=== PATIENT | male | born 1965 | race Caucasian/White ===

== ENCOUNTER 2017-05-24 20:44 | Emergency (ER) | payer BC ==
[2017-05-25] MEDS: SOD CHLORIDE 0.9% 1,000 ML IV (02:41)
[2017-05-25 02:46] LABS: WHITE BLOOD COUNT 5.7 10^3/ul (4.8-10.8)
[2017-05-25 02:46] LABS: ADD MAN DIFF? NO; BASOPHILS % 0.7 % (0.0-2.0); EOSINOPHILS # 0.3 10^3/ul (0.0-0.5); EOSINOPHILS % 5.6 % (0.0-7.0); HEMOGLOBIN 9.4 g/dl (14.0-18.0); LYMPHOCYTES # 1.2 10^3/ul (0.8-2.9); LYMPHOCYTES % 21.7 % (15.0-51.0); MEAN CORPUSCULAR HEMOGLOBIN 27.1 pg (29.0-33.0); MEAN CORPUSCULAR HGB CONC 33.6 g/dl (32.0-37.0); MEAN CORPUSCULAR VOLUME 80.7 fl (82.0-101.0); MEAN PLATELET VOLUME 10.1 fl (7.4-10.4); MONOCYTE # 0.6 10^3/ul (0.3-0.9); MONOCYTES % 10.8 % (0.0-11.0); NEUTROPHIL # 3.5 10^3/ul (1.6-7.5); NEUTROPHILS % 60.8 % (39.0-77.0); PLATELET COUNT 251 10^3/UL (140-415); RED BLOOD COUNT 3.47 10^6/ul (4.70-6.10); RED CELL DISTRIBUTION WIDTH 12.7 % (11.5-14.5)
[2017-05-25] MEDS: ONDANSETRON 4 MG INJ IV (03:12)
[2017-05-25 03:23] LABS: ALANINE AMINOTRANSFERASE 32 IU/L (13-69); ALBUMIN 3.9 g/dl (3.3-4.9); ALBUMIN/GLOBULIN RATIO 1.34; ALKALINE PHOSPHATASE 63 IU/L (42-121); ANION GAP 18 (8-16); ASPARTATE AMINO TRANSFERASE 17 IU/L (15-46); BILIRUBIN,INDIRECT 0.2 mg/dl (0-1.1); BILIRUBIN,TOTAL 0.2 mg/dl (0.2-1.3); BLOOD UREA NITROGEN 24 mg/dl (7-20); CALCIUM 8.7 mg/dl (8.4-10.2); CARBON DIOXIDE 28 mmol/L (21-31); CHLORIDE 103 mmol/L (97-110); CREATININE 1.21 mg/dl (0.61-1.24); GLUCOSE 167 mg/dl (70-220); POTASSIUM 3.9 mmol/L (3.5-5.1); SODIUM 145 mmol/L (135-144); TOTAL PROTEIN 6.8 g/dl (6.1-8.1)
[2017-05-25] MEDS: ALTEPLASE (CATHFLO) 2 MG INJ CATHETER ×2 (04:07→04:53)
[2017-05-25 06:23] LABS: VANCOMYCIN,RANDOM 19.3 ug/ml
== END 2017-05-25 06:05 | disposition home or self-care (01) ==
LOC: E/R 20:44
DX: T82.898A Other specified complication of vascular prosthetic devices, implants and grafts, initial encounter (principal); E11.9 Type 2 diabetes mellitus without complications; Y71.2 Prosthetic and other implants, materials and accessory cardiovascular devices associated with adverse incidents; Z79.4 Long term (current) use of insulin
CPT/HCPCS: 36415; 80053; 80202; 85025; 96374; 99284-25

== ENCOUNTER 2017-06-25 00:18 | Inpatient (IN) | payer BC ==
[2017-06-25] MEDS: SOD CHLORIDE 0.9% 1,000 ML IV ×3 (04:43→21:34)
[2017-06-25 06:21] LABS: ADD MAN DIFF? NO
[2017-06-25] MEDS: PIPER-TAZO 3.375 GM IV (PMX) 100 ML IVPB ×3 (06:21→19:21)
[2017-06-25 06:29] LABS: BASOPHIL # 0.1 10^3/ul (0.0-0.1); BASOPHILS % 0.5 % (0.0-2.0); EOSINOPHILS # 0.5 10^3/ul (0.0-0.5); EOSINOPHILS % 4.6 % (0.0-7.0); LYMPHOCYTES # 1.3 10^3/ul (0.8-2.9); MEAN CORPUSCULAR HEMOGLOBIN 27.2 pg (29.0-33.0); MEAN CORPUSCULAR HGB CONC 34.4 g/dl (32.0-37.0); MONOCYTE # 0.7 10^3/ul (0.3-0.9); MONOCYTES % 7.4 % (0.0-11.0); NEUTROPHIL # 7.2 10^3/ul (1.6-7.5); NEUTROPHILS % 74.1 % (39.0-77.0); PLATELET COUNT 255 10^3/UL (140-415); RED BLOOD COUNT 4.05 10^6/ul (4.70-6.10); RED CELL DISTRIBUTION WIDTH 11.7 % (11.5-14.5)
[2017-06-25 06:29] LABS: WHITE BLOOD COUNT 9.7 10^3/ul (4.8-10.8)
[2017-06-25 06:55] LABS: ALANINE AMINOTRANSFERASE 39 IU/L (13-69); ALBUMIN 4.3 g/dl (3.3-4.9); ALBUMIN/GLOBULIN RATIO 1.22; ALKALINE PHOSPHATASE 107 IU/L (42-121); ANION GAP 15 (8-16); ASPARTATE AMINO TRANSFERASE 19 IU/L (15-46); BILIRUBIN,INDIRECT 0.2 mg/dl (0-1.1); BILIRUBIN,TOTAL 0.2 mg/dl (0.2-1.3); BLOOD UREA NITROGEN 30 mg/dl (7-20); CALCIUM 9.8 mg/dl (8.4-10.2); CARBON DIOXIDE 30 mmol/L (21-31); CHLORIDE 93 mmol/L (97-110); CREATININE 1.08 mg/dl (0.61-1.24); POTASSIUM 4.8 mmol/L (3.5-5.1); SODIUM 133 mmol/L (135-144); TOTAL PROTEIN 7.8 g/dl (6.1-8.1)
[2017-06-25 06:56] LABS: LACTIC ACID 1.2 mmol/L (0.5-2.0)
[2017-06-25 06:58] LABS: GLUCOSE 474 mg/dl (70-220)
[2017-06-25 07:07] LABS: TROPONIN-I < 0.012 ng/ml (0.00-0.12)
[2017-06-25] MEDS ORDERED: SOD CHLORIDE 0.9% 1,000 ML IV (07:09)
[2017-06-25] MEDS ORDERED: VANCOMYCIN IV PER PHARMACY XX (07:30)
[2017-06-25] MEDS ORDERED: GLUCOSE GEL 15 GRAM TUBE BUCCAL (07:30)
[2017-06-25] MEDS ORDERED: morphine 2 MG INJ IV (07:30)
[2017-06-25] MEDS ORDERED: DEXTROSE 50% 50 ML SYRINGE IV ×2 (07:30)
[2017-06-25] MEDS ORDERED: GLUCAGON 1 MG INJ IM (07:30)
[2017-06-25] MEDS ORDERED: GLUCOSE GEL 15 GRAM TUBE PO ×2 (07:30)
[2017-06-25] MEDS ORDERED: ZOLPIDEM 5 MG TAB PO (07:30)
[2017-06-25] MEDS ORDERED: DOCUSATE SODIUM 100 MG CAP PO (07:30)
[2017-06-25] MEDS ORDERED: MAGNESIUM HYDROXIDE 30ML CUP PO (07:30)
[2017-06-25] MEDS ORDERED: NACL 0.9% 3 ML SYG IV (07:30)
[2017-06-25] MEDS ORDERED: ACETAMINOPHEN 325 MG TAB PO (07:30)
[2017-06-25] MEDS ORDERED: HYDROCODONE/APAP (5/325) TAB PO (07:30)
[2017-06-25] MEDS ORDERED: ONDANSETRON 4 MG INJ IV (07:30)
[2017-06-25] MEDS: VANCOMYCIN 1 GM (PMX) 250 ML IVPB (07:37)
[2017-06-25] MEDS: INSULIN GLARGINE [LANtus] 3 ML PEN SC ×2 (07:57→21:39)
[2017-06-25] MEDS ORDERED: morphine LIQ (10 MG/5 ML) CUP PO (08:00)
[2017-06-25] MEDS: PANTOPRAZOLE (EC) 40 MG TAB PO (08:00)
[2017-06-25 08:58] LABS: LACTIC ACID 0.9 mmol/L (0.5-2.0)
[2017-06-25] MEDS ORDERED: INSULIN GLARGINE [LANtus] 3 ML PEN SC (09:00)
[2017-06-25 09:01] LABS: C-REACTIVE PROTEIN 5.5 mg/dl (0.0-0.9)
[2017-06-25] MEDS: INSULIN ASPART [NOVOLOG] 3 ML PEN SC ×5 (09:16→21:00)
[2017-06-25] MEDS: FAMOTIDINE 20 MG TAB PO ×2 (09:47→21:35)
[2017-06-25] MEDS: LACTOBACILLUS RHAMNOSUS CAP PO ×2 (09:48→21:34)
[2017-06-25] MEDS: LOSARTAN 25 MG TAB PO ×2 (09:48→21:35)
[2017-06-25] MEDS: CITALOPRAM 20 MG TAB PO (09:48)
[2017-06-25 09:54] LABS: ERYTHROCYTE SEDIMENTATION RATE 64 mm/Hr (0-20)
[2017-06-25 10:57] LABS: LACTIC ACID 2.2 mmol/L (0.5-2.0)
[2017-06-25] MEDS: PREGABALIN 75 MG CAP PO ×2 (13:53→21:35)
[2017-06-25] MEDS: COLLAGENASE 30 GM TUBE TOP (13:54)
[2017-06-25] MEDS ORDERED: LACTATED RINGER'S 1,000 ML IV (17:30)
[2017-06-25] MEDS: LACTATED RINGER'S 1,000 ML IV (17:56)
[2017-06-25 18:25] LABS: ANION GAP 13 (8-16); BLOOD UREA NITROGEN 25 mg/dl (7-20); CALCIUM 9.1 mg/dl (8.4-10.2); CARBON DIOXIDE 28 mmol/L (21-31); CHLORIDE 100 mmol/L (97-110); CREATININE 1.01 mg/dl (0.61-1.24); GLUCOSE 255 mg/dl (70-220); MAGNESIUM 1.8 mg/dl (1.7-2.5); PHOSPHORUS 3.9 mg/dl (2.5-4.9); POTASSIUM 4.4 mmol/L (3.5-5.1); SODIUM 137 mmol/L (135-144)
[2017-06-25 18:26] LABS: LACTIC ACID 0.9 mmol/L (0.5-2.0)
[2017-06-25] MEDS: ATORVASTATIN 20 MG TAB PO (21:35)
[2017-06-25] MEDS: VANCOMYCIN 1.25 GM in SOD CHLORIDE 0.45% 250 ML IVPB ×2 (21:58→21:59)
[2017-06-26] MEDS: PIPER-TAZO 3.375 GM IV (PMX) 100 ML IVPB ×4 (00:56→18:27)
[2017-06-26] MEDS: ACCU-CHEK XX (01:28)
[2017-06-26 05:07] LABS: ADD MAN DIFF? NO
[2017-06-26 05:14] LABS: WHITE BLOOD COUNT 6.9 10^3/ul (4.8-10.8)
[2017-06-26 05:14] LABS: BASOPHILS % 0.6 % (0.0-2.0); EOSINOPHILS # 0.6 10^3/ul (0.0-0.5); EOSINOPHILS % 8.3 % (0.0-7.0); HEMATOCRIT 28.5 % (42.0-52.0); HEMOGLOBIN 9.6 g/dl (14.0-18.0); LYMPHOCYTES # 1.3 10^3/ul (0.8-2.9); LYMPHOCYTES % 19.4 % (15.0-51.0); MEAN CORPUSCULAR HEMOGLOBIN 26.7 pg (29.0-33.0); MEAN CORPUSCULAR HGB CONC 33.7 g/dl (32.0-37.0); MEAN CORPUSCULAR VOLUME 79.2 fl (82.0-101.0); MEAN PLATELET VOLUME 10.1 fl (7.4-10.4); MONOCYTE # 0.6 10^3/ul (0.3-0.9); MONOCYTES % 8.3 % (0.0-11.0); NEUTROPHIL # 4.3 10^3/ul (1.6-7.5); NEUTROPHILS % 63.1 % (39.0-77.0); PLATELET COUNT 243 10^3/UL (140-415); RED CELL DISTRIBUTION WIDTH 11.8 % (11.5-14.5)
[2017-06-26 05:39] LABS: ALANINE AMINOTRANSFERASE 40 IU/L (13-69); ALBUMIN 3.4 g/dl (3.3-4.9); ALBUMIN/GLOBULIN RATIO 1.21; ALKALINE PHOSPHATASE 61 IU/L (42-121); ANION GAP 11 (8-16); ASPARTATE AMINO TRANSFERASE 16 IU/L (15-46); BILIRUBIN,INDIRECT 0.1 mg/dl (0-1.1); BILIRUBIN,TOTAL 0.1 mg/dl (0.2-1.3); BLOOD UREA NITROGEN 24 mg/dl (7-20); CALCIUM 8.9 mg/dl (8.4-10.2); CARBON DIOXIDE 29 mmol/L (21-31); CHLORIDE 101 mmol/L (97-110); CHOL/HDL RATIO 3.1 RATIO; CHOLESTEROL 113 mg/dl (100-200); CREATININE 1.16 mg/dl (0.61-1.24); GLUCOSE 150 mg/dl (70-220); HDL CHOLESTEROL 36 mg/dl (28-71); LDL CHOLESTEROL,CALCULATED 66 mg/dl; MAGNESIUM 1.8 mg/dl (1.7-2.5); POTASSIUM 4.3 mmol/L (3.5-5.1); SODIUM 137 mmol/L (135-144); TOTAL PROTEIN 6.2 g/dl (6.1-8.1); TRIGLYCERIDES 55 mg/dl (0-149)
[2017-06-26 05:53] LABS: AMPHETAMINE/METHAMPHETAMINE Negative (NEGATIVE); BARBITURATES Negative (NEGATIVE); BENZODIAZEPINES Negative (NEGATIVE); CANNABINOIDS Negative (NEGATIVE); COCAINE Negative (NEGATIVE); OPIATES Negative (NEGATIVE)
[2017-06-26] MEDS: PANTOPRAZOLE (EC) 40 MG TAB PO (05:57)
[2017-06-26] MEDS: SOD CHLORIDE 0.9% 1,000 ML IV ×2 (06:40→11:34)
[2017-06-26 06:58] LABS: THYROID STIMULATING HORMONE 0.243 MIU/L (0.465-4.680)
[2017-06-26] MEDS: INSULIN ASPART [NOVOLOG] 3 ML PEN SC ×7 (09:03→21:00)
[2017-06-26] MEDS: FAMOTIDINE 20 MG TAB PO ×2 (09:04→20:53)
[2017-06-26] MEDS: LACTOBACILLUS RHAMNOSUS CAP PO ×2 (09:04→20:54)
[2017-06-26] MEDS: CITALOPRAM 20 MG TAB PO (09:04)
[2017-06-26] MEDS: LOSARTAN 25 MG TAB PO ×2 (09:05→20:55)
[2017-06-26] MEDS: INSULIN GLARGINE [LANtus] 3 ML PEN SC ×2 (09:09→21:49)
[2017-06-26] MEDS: COLLAGENASE 30 GM TUBE TOP (09:10)
[2017-06-26] MEDS: PREGABALIN 75 MG CAP PO ×2 (09:17→20:54)
[2017-06-26] MEDS: VANCOMYCIN 1.25 GM in SOD CHLORIDE 0.45% 250 ML IVPB ×2 (11:34→21:43)
[2017-06-26 11:37] LABS: HEMOGLOBIN A1C 11.9 % (0-5.9)
[2017-06-26 13:53] LABS: ADD UMIC NO; UR ASCORBIC ACID NEGATIVE (NEGATIVE); UR BILIRUBIN (Dip) NEGATIVE (NEGATIVE); UR BLOOD (Dip) NEGATIVE (NEGATIVE); UR CLARITY SLIGHTLY CLOUDY (CLEAR); UR COLOR YELLOW (YELLOW); UR GLUCOSE (Dip) 3+ mg/dL (NEGATIVE); UR KETONES (Dip) NEGATIVE (NEGATIVE); UR LEUKOCYTE ESTERASE (Dip) NEGATIVE Leu/ul (NEGATIVE); UR NITRITE (Dip) NEGATIVE (NEGATIVE); UR RBC 3 /HPF (0-5); UR SPECIFIC GRAVITY (Dip) 1.022 (1.003-1.030); UR TOTAL PROTEIN (Dip) NEGATIVE (NEGATIVE); UR UROBILINOGEN (Dip) NEGATIVE (NEGATIVE); UR WBC 1 /HPF (0-5)
[2017-06-26] MEDS: ATORVASTATIN 20 MG TAB PO (20:53)
[2017-06-27] MEDS: PIPER-TAZO 3.375 GM IV (PMX) 100 ML IVPB ×3 (00:55→13:14)
[2017-06-27] MEDS: SOD CHLORIDE 0.9% 1,000 ML IV ×3 (01:39→20:47)
[2017-06-27] MEDS: ACCU-CHEK XX (01:47)
[2017-06-27 05:13] LABS: ADD MAN DIFF? NO
[2017-06-27 05:14] LABS: BASOPHILS % 0.7 % (0.0-2.0); EOSINOPHILS # 0.5 10^3/ul (0.0-0.5); EOSINOPHILS % 9.5 % (0.0-7.0); HEMATOCRIT 29.3 % (42.0-52.0); HEMOGLOBIN 9.9 g/dl (14.0-18.0); LYMPHOCYTES # 1.4 10^3/ul (0.8-2.9); LYMPHOCYTES % 25.2 % (15.0-51.0); MEAN CORPUSCULAR HEMOGLOBIN 26.9 pg (29.0-33.0); MEAN CORPUSCULAR HGB CONC 33.8 g/dl (32.0-37.0); MEAN CORPUSCULAR VOLUME 79.6 fl (82.0-101.0); MEAN PLATELET VOLUME 10.1 fl (7.4-10.4); MONOCYTE # 0.5 10^3/ul (0.3-0.9); MONOCYTES % 9.3 % (0.0-11.0); NEUTROPHILS % 54.9 % (39.0-77.0); PLATELET COUNT 257 10^3/UL (140-415); RED BLOOD COUNT 3.68 10^6/ul (4.70-6.10); RED CELL DISTRIBUTION WIDTH 11.8 % (11.5-14.5)
[2017-06-27 05:14] LABS: WHITE BLOOD COUNT 5.4 10^3/ul (4.8-10.8)
[2017-06-27 05:39] LABS: MAGNESIUM 1.7 mg/dl (1.7-2.5)
[2017-06-27 05:39] LABS: PHOSPHORUS 4.2 mg/dl (2.5-4.9)
[2017-06-27 05:41] LABS: ANION GAP 12 (8-16); BLOOD UREA NITROGEN 22 mg/dl (7-20); CARBON DIOXIDE 29 mmol/L (21-31); CHLORIDE 102 mmol/L (97-110); CREATININE 1.06 mg/dl (0.61-1.24); GLUCOSE 151 mg/dl (70-220); POTASSIUM 4.4 mmol/L (3.5-5.1); SODIUM 139 mmol/L (135-144)
[2017-06-27] MEDS: PANTOPRAZOLE (EC) 40 MG TAB PO (06:17)
[2017-06-27] MEDS: INSULIN ASPART [NOVOLOG] 3 ML PEN SC ×7 (08:44→21:00)
[2017-06-27] MEDS: INSULIN GLARGINE [LANtus] 3 ML PEN SC ×2 (08:46→21:34)
[2017-06-27] MEDS: CITALOPRAM 20 MG TAB PO (08:47)
[2017-06-27] MEDS: LOSARTAN 25 MG TAB PO ×2 (08:48→21:30)
[2017-06-27] MEDS: FAMOTIDINE 20 MG TAB PO ×2 (08:48→21:31)
[2017-06-27] MEDS: LACTOBACILLUS RHAMNOSUS CAP PO ×2 (08:48→21:30)
[2017-06-27] MEDS: PREGABALIN 75 MG CAP PO ×2 (09:40→21:30)
[2017-06-27 09:59] LABS: VANCOMYCIN,TROUGH 18.5 ug/ml (10.0-20.0)
[2017-06-27] MEDS: COLLAGENASE 30 GM TUBE TOP (10:30)
[2017-06-27] MEDS: VANCOMYCIN 1 GM 250 ML IVPB ×2 (10:53→23:03)
[2017-06-27] MEDS: CEFTRIAXONE 1 GM/50 ML (PMX) 50 ML IVPB (15:00)
[2017-06-27 15:42] LABS: CHLORIDE, RANDOM URINE 79 mmol/L (32-290)
[2017-06-27] MEDS ORDERED: MIDAZOLAM 1 MG/ML 2 ML INJ (20:10)
[2017-06-27] MEDS ORDERED: ONDANSETRON 4 MG INJ (20:11)
[2017-06-27] MEDS: BUPIVACAINE 0.5% (SDV) 30 ML INJ (20:12)
[2017-06-27] MEDS: POLYMYXIN/BACITRACIN 1L IRRIG (20:12)
[2017-06-27] MEDS: LIDOCAINE 2% (MDV) 20 ML INJ (20:12)
[2017-06-27] MEDS ORDERED: FENTAnyl 50 MCG/ML VIAL IV ×3 (20:30)
[2017-06-27] MEDS ORDERED: HYDROmorphONE (0.2 MG/ML) 10ML SYG IV ×3 (20:30)
[2017-06-27] MEDS ORDERED: IPRATROPIUM (NEB) 0.5 MG/2.5 ML AMP HHN (20:30)
[2017-06-27] MEDS ORDERED: OXYCODONE/ACETAMINOPHEN (5/325) TAB PO ×2 (20:30)
[2017-06-27] MEDS ORDERED: hydrALAzine 20 MG INJ IV (20:30)
[2017-06-27] MEDS ORDERED: ONDANSETRON 4 MG INJ IV (20:30)
[2017-06-27] MEDS ORDERED: EPHEDrine SULFATE 50 MG/5 ML SYG IV (20:30)
[2017-06-27] MEDS ORDERED: TRIMETHOBENZAMIDE 100 MG/ML VIAL IM (20:30)
[2017-06-27] MEDS ORDERED: ALBUTEROL 0.083% (NEB) 2.5 MG/3 ML AMP HHN (20:30)
[2017-06-27] MEDS ORDERED: LABETALOL HCL 20MG INJ IV (20:30)
[2017-06-27] MEDS ORDERED: MIDAZOLAM 1 MG/ML 2 ML INJ IV (20:30)
[2017-06-27] MEDS ORDERED: DIPHENHYDRAMINE 50 MG INJ IV (20:30)
[2017-06-27] MEDS ORDERED: MEPERIDINE 25 MG INJ IV (20:30)
[2017-06-27] MEDS: ATORVASTATIN 20 MG TAB PO (21:31)
[2017-06-28] MEDS: ACCU-CHEK XX (01:02)
[2017-06-28] MEDS: SOD CHLORIDE 0.9% 1,000 ML IV ×3 (03:19→11:45)
[2017-06-28] MEDS: PANTOPRAZOLE (EC) 40 MG TAB PO (05:39)
[2017-06-28 05:46] LABS: ADD MAN DIFF? NO
[2017-06-28 05:56] LABS: BASOPHILS % 0.8 % (0.0-2.0); EOSINOPHILS # 0.4 10^3/ul (0.0-0.5); HEMATOCRIT 30.5 % (42.0-52.0); HEMOGLOBIN 10.2 g/dl (14.0-18.0); LYMPHOCYTES # 0.9 10^3/ul (0.8-2.9); LYMPHOCYTES % 16.3 % (15.0-51.0); MEAN CORPUSCULAR HEMOGLOBIN 26.6 pg (29.0-33.0); MEAN CORPUSCULAR HGB CONC 33.4 g/dl (32.0-37.0); MEAN CORPUSCULAR VOLUME 79.6 fl (82.0-101.0); MEAN PLATELET VOLUME 9.9 fl (7.4-10.4); MONOCYTE # 0.5 10^3/ul (0.3-0.9); MONOCYTES % 9.5 % (0.0-11.0); NEUTROPHIL # 3.4 10^3/ul (1.6-7.5); PLATELET COUNT 286 10^3/UL (140-415); RED BLOOD COUNT 3.83 10^6/ul (4.70-6.10); RED CELL DISTRIBUTION WIDTH 11.9 % (11.5-14.5)
[2017-06-28 05:56] LABS: WHITE BLOOD COUNT 5.3 10^3/ul (4.8-10.8)
[2017-06-28 06:22] LABS: PHOSPHORUS 3.9 mg/dl (2.5-4.9)
[2017-06-28 06:22] LABS: MAGNESIUM 1.6 mg/dl (1.7-2.5)
[2017-06-28 06:33] LABS: ANION GAP 9 (8-16); BLOOD UREA NITROGEN 18 mg/dl (7-20); CARBON DIOXIDE 30 mmol/L (21-31); CHLORIDE 105 mmol/L (97-110); CREATININE 1.04 mg/dl (0.61-1.24); GLUCOSE 135 mg/dl (70-220); POTASSIUM 4.3 mmol/L (3.5-5.1); SODIUM 140 mmol/L (135-144)
[2017-06-28] MEDS: PREGABALIN 75 MG CAP PO ×2 (08:35→20:46)
[2017-06-28] MEDS: LACTOBACILLUS RHAMNOSUS CAP PO ×2 (08:35→20:47)
[2017-06-28] MEDS: FAMOTIDINE 20 MG TAB PO (08:35)
[2017-06-28] MEDS: CITALOPRAM 20 MG TAB PO (08:36)
[2017-06-28] MEDS: LOSARTAN 25 MG TAB PO ×2 (08:38→19:43)
[2017-06-28] MEDS: INSULIN ASPART [NOVOLOG] 3 ML PEN SC ×7 (08:43→20:47)
[2017-06-28] MEDS: INSULIN GLARGINE [LANtus] 3 ML PEN SC ×2 (08:44→20:47)
[2017-06-28] MEDS: COLLAGENASE 30 GM TUBE TOP (09:00)
[2017-06-28] MEDS: VANCOMYCIN 1 GM 250 ML IVPB (11:45)
[2017-06-28] MEDS: CEFTRIAXONE 1 GM/50 ML (PMX) 50 ML IVPB (14:22)
[2017-06-28 15:12] LABS: PROCALCITONIN 0.13 ng/mL (<0.10)
[2017-06-28] MEDS: LIDOCAINE 1% (MPF) 5 ML VIAL SC (15:30)
[2017-06-28] MEDS: MAGNESIUM SULFATE 2 GM/50 ML 50 ML IVPB (16:09)
[2017-06-28] MEDS: LEVOFLOXACIN 500 MG TAB PO (16:52)
[2017-06-28] MEDS: INFLUENZA VIRUS VACCINE 0.5 ML (DISPENSING) IM* (16:58)
[2017-06-28] MEDS: ATORVASTATIN 20 MG TAB PO (20:46)
[2017-06-29] MEDS: ACCU-CHEK XX (02:00)
[2017-06-29 05:40] LABS: ADD MAN DIFF? NO
[2017-06-29 05:42] LABS: BASOPHILS % 0.5 % (0.0-2.0); EOSINOPHILS # 0.2 10^3/ul (0.0-0.5); HEMATOCRIT 28.8 % (42.0-52.0); HEMOGLOBIN 9.6 g/dl (14.0-18.0); LYMPHOCYTES # 0.7 10^3/ul (0.8-2.9); MEAN CORPUSCULAR HEMOGLOBIN 26.6 pg (29.0-33.0); MEAN CORPUSCULAR HGB CONC 33.3 g/dl (32.0-37.0); MEAN CORPUSCULAR VOLUME 79.8 fl (82.0-101.0); MEAN PLATELET VOLUME 9.8 fl (7.4-10.4); MONOCYTE # 0.5 10^3/ul (0.3-0.9); NEUTROPHIL # 4.5 10^3/ul (1.6-7.5); NEUTROPHILS % 75.3 % (39.0-77.0); PLATELET COUNT 276 10^3/UL (140-415); RED BLOOD COUNT 3.61 10^6/ul (4.70-6.10); RED CELL DISTRIBUTION WIDTH 11.9 % (11.5-14.5)
[2017-06-29 06:06] LABS: ANION GAP 9 (8-16); BLOOD UREA NITROGEN 19 mg/dl (7-20); CALCIUM 8.6 mg/dl (8.4-10.2); CARBON DIOXIDE 32 mmol/L (21-31); CHLORIDE 102 mmol/L (97-110); CREATININE 0.92 mg/dl (0.61-1.24); GLUCOSE 282 mg/dl (70-220); POTASSIUM 4.5 mmol/L (3.5-5.1); SODIUM 138 mmol/L (135-144)
[2017-06-29 06:07] LABS: PHOSPHORUS 3.4 mg/dl (2.5-4.9)
[2017-06-29 06:07] LABS: MAGNESIUM 1.8 mg/dl (1.7-2.5)
[2017-06-29] MEDS: LEVOFLOXACIN 500 MG TAB PO (06:34)
[2017-06-29] MEDS: PANTOPRAZOLE (EC) 40 MG TAB PO (06:34)
[2017-06-29] MEDS: LOSARTAN 25 MG TAB PO ×2 (07:54→12:34)
[2017-06-29] MEDS: INSULIN GLARGINE [LANtus] 3 ML PEN SC ×2 (08:02→20:39)
[2017-06-29] MEDS: INSULIN ASPART [NOVOLOG] 3 ML PEN SC ×7 (08:03→20:39)
[2017-06-29] MEDS: COLLAGENASE 30 GM TUBE TOP (09:00)
[2017-06-29] MEDS: PREGABALIN 75 MG CAP PO ×2 (09:10→20:32)
[2017-06-29] MEDS: CITALOPRAM 20 MG TAB PO (09:10)
[2017-06-29] MEDS: LACTOBACILLUS RHAMNOSUS CAP PO ×2 (09:10→20:32)
[2017-06-29] MEDS: METOPROLOL 25 MG TAB PO ×2 (12:34→20:34)
[2017-06-29] MEDS: CEFTRIAXONE 1 GM/50 ML (PMX) 50 ML IVPB (14:14)
[2017-06-29] MEDS: ATORVASTATIN 20 MG TAB PO (20:32)
[2017-06-30] MEDS ORDERED: LOSARTAN 50 MG TAB PO (09:00)
== END 2017-06-29 21:21 | disposition home or self-care (01) | DRG 982 ==
LOC: MS1 06-26 15:15 → E/R 00:18 → MS1 06:10
PROVIDERS: Hospitalist
PROC: 0Q9P0ZZ Drainage of Left Metatarsal, Open Approach (ICD-10-PCS; principal; 2017-06-27 19:00)
PROC: 02HV33Z Insertion of Infusion Device into Superior Vena Cava, Percutaneous Approach (ICD-10-PCS; 2017-06-27 20:03)
PROC: B54NZZA Ultrasonography of Left Upper Extremity Veins, Guidance (ICD-10-PCS; 2017-06-27 20:03)
PROC: 3E0234Z Introduction of Serum, Toxoid and Vaccine into Muscle, Percutaneous Approach (ICD-10-PCS; 2017-06-27 20:03)
DX: E10.69 Type 1 diabetes mellitus with other specified complication (principal); M86.172 Other acute osteomyelitis, left ankle and foot; E10.621 Type 1 diabetes mellitus with foot ulcer; E10.42 Type 1 diabetes mellitus with diabetic polyneuropathy; E10.51 Type 1 diabetes mellitus with diabetic peripheral angiopathy without gangrene; L03.116 Cellulitis of left lower limb; L02.612 Cutaneous abscess of left foot; L97.524 Non-pressure chronic ulcer of other part of left foot with necrosis of bone; I10 Essential (primary) hypertension; E78.00 Pure hypercholesterolemia, unspecified; B95.1 Streptococcus, group B, as the cause of diseases classified elsewhere; B95.7 Other staphylococcus as the cause of diseases classified elsewhere; Z83.3 Family history of diabetes mellitus; Z79.4 Long term (current) use of insulin; Z23 Encounter for immunization; E10.65 Type 1 diabetes mellitus with hyperglycemia
CPT/HCPCS: 36415; 36569; 71045; 73718; 76937; 80048; 80053; 80061; 80202; 80307; 81001; 81003; 82436; 82962; 83036; 83605; 83735; 84100; 84145; 84443; 84484; 85025; 85651; 86140; 87040; 87070; 87075; 87086; 87102; 87116; 90686; 93005; 96361; 96365; 96366; 96372; 96375; 99285-25

== ENCOUNTER 2017-07-20 12:33 | Emergency (ER) | payer BC ==
[2017-07-20 16:10] LABS: ADD MAN DIFF? NO
[2017-07-20 16:12] LABS: BASOPHIL # 0.1 10^3/ul (0.0-0.1); BASOPHILS % 0.8 % (0.0-2.0); EOSINOPHILS # 0.3 10^3/ul (0.0-0.5); EOSINOPHILS % 4.7 % (0.0-7.0); HEMATOCRIT 38.6 % (42.0-52.0); HEMOGLOBIN 13.1 g/dl (14.0-18.0); LYMPHOCYTES # 1.3 10^3/ul (0.8-2.9); LYMPHOCYTES % 20.7 % (15.0-51.0); MEAN CORPUSCULAR HGB CONC 33.9 g/dl (32.0-37.0); MEAN CORPUSCULAR VOLUME 79.4 fl (82.0-101.0); MEAN PLATELET VOLUME 10.4 fl (7.4-10.4); MONOCYTE # 0.5 10^3/ul (0.3-0.9); MONOCYTES % 7.2 % (0.0-11.0); NEUTROPHIL # 4.1 10^3/ul (1.6-7.5); NEUTROPHILS % 66.4 % (39.0-77.0); PLATELET COUNT 265 10^3/UL (140-415); RED BLOOD COUNT 4.86 10^6/ul (4.70-6.10); RED CELL DISTRIBUTION WIDTH 12.7 % (11.5-14.5)
[2017-07-20 16:12] LABS: WHITE BLOOD COUNT 6.2 10^3/ul (4.8-10.8)
[2017-07-20 16:38] LABS: ANION GAP 17 (8-16); BLOOD UREA NITROGEN 44 mg/dl (7-20); CARBON DIOXIDE 30 mmol/L (21-31); CHLORIDE 99 mmol/L (97-110); GLUCOSE 228 mg/dl (70-220); POTASSIUM 4.7 mmol/L (3.5-5.1); SODIUM 141 mmol/L (135-144)
== END 2017-07-20 18:05 | disposition home or self-care (01) ==
LOC: E/R 12:33
DX: M86.272 Subacute osteomyelitis, left ankle and foot (principal); E11.9 Type 2 diabetes mellitus without complications; Z79.4 Long term (current) use of insulin
CPT/HCPCS: 36415; 80048; 85025; 99283

== ENCOUNTER 2017-08-06 02:48 | Emergency (ER) | payer BC ==
[2017-08-06 05:48] LABS: ADD MAN DIFF? NO
[2017-08-06] MEDS: SODIUM CHLORIDE 0.9% 1L BAG IV* (05:49)
[2017-08-06 05:55] LABS: WHITE BLOOD COUNT 8.7 10^3/ul (4.8-10.8)
[2017-08-06 05:55] LABS: BASOPHIL # 0.1 10^3/ul (0.0-0.1); BASOPHILS % 0.9 % (0.0-2.0); EOSINOPHILS # 0.3 10^3/ul (0.0-0.5); EOSINOPHILS % 3.1 % (0.0-7.0); HEMATOCRIT 31.6 % (42.0-52.0); HEMOGLOBIN 11.1 g/dl (14.0-18.0); LYMPHOCYTES # 2.2 10^3/ul (0.8-2.9); LYMPHOCYTES % 25.4 % (15.0-51.0); MEAN CORPUSCULAR HEMOGLOBIN 27.1 pg (29.0-33.0); MEAN CORPUSCULAR HGB CONC 35.1 g/dl (32.0-37.0); MEAN CORPUSCULAR VOLUME 77.1 fl (82.0-101.0); MEAN PLATELET VOLUME 10.6 fl (7.4-10.4); MONOCYTE # 0.7 10^3/ul (0.3-0.9); MONOCYTES % 7.7 % (0.0-11.0); NEUTROPHIL # 5.4 10^3/ul (1.6-7.5); NEUTROPHILS % 62.7 % (39.0-77.0); PLATELET COUNT 267 10^3/UL (140-415); RED CELL DISTRIBUTION WIDTH 12.4 % (11.5-14.5)
[2017-08-06 06:16] LABS: INR 0.96; PROTIME 12.9 Sec (11.9-14.9)
[2017-08-06 06:17] LABS: PARTIAL THROMBOPLASTIN TIME 25.6 Sec (25.0-35.0)
[2017-08-06 06:22] LABS: LACTIC ACID 1.7 mmol/L (0.5-2.0)
[2017-08-06 06:26] LABS: ALANINE AMINOTRANSFERASE 29 IU/L (13-69); ALBUMIN 4.6 g/dl (3.3-4.9); ALBUMIN/GLOBULIN RATIO 1.53; ALKALINE PHOSPHATASE 92 IU/L (42-121); ANION GAP 18 (8-16); ASPARTATE AMINO TRANSFERASE 19 IU/L (15-46); BILIRUBIN,INDIRECT 0.1 mg/dl (0-1.1); BILIRUBIN,TOTAL 0.1 mg/dl (0.2-1.3); BLOOD UREA NITROGEN 45 mg/dl (7-20); CARBON DIOXIDE 30 mmol/L (21-31); CHLORIDE 100 mmol/L (97-110); CREATININE 1.34 mg/dl (0.61-1.24); GLUCOSE 82 mg/dl (70-220); POTASSIUM 4.2 mmol/L (3.5-5.1); SODIUM 144 mmol/L (135-144); TOTAL PROTEIN 7.6 g/dl (6.1-8.1)
[2017-08-06 06:41] LABS: TROPONIN-I < 0.012 ng/ml (0.00-0.12)
[2017-08-06 09:29] LABS: LACTIC ACID 1.3 mmol/L (0.5-2.0)
== END 2017-08-06 09:44 | disposition home or self-care (01) ==
LOC: E/R 02:48
DX: M86.9 Osteomyelitis, unspecified (principal); E11.42 Type 2 diabetes mellitus with diabetic polyneuropathy; E11.22 Type 2 diabetes mellitus with diabetic chronic kidney disease; N18.9 Chronic kidney disease, unspecified; I12.9 Hypertensive chronic kidney disease with stage 1 through stage 4 chronic kidney disease, or unspecified chronic kidney disease; Z79.84 Long term (current) use of oral hypoglycemic drugs
CPT/HCPCS: 36415; 71045; 80053; 82962; 83605; 84484; 85025; 85610; 85730; 87040; 93005; 93922; 99285-25

== ENCOUNTER 2017-09-05 12:40 | Emergency (ER) | payer BC ==
[2017-09-05 15:45] LABS: ADD MAN DIFF? NO
[2017-09-05 15:51] LABS: WHITE BLOOD COUNT 6.4 10^3/ul (4.8-10.8)
[2017-09-05 15:51] LABS: BASOPHIL # 0.1 10^3/ul (0.0-0.1); BASOPHILS % 0.8 % (0.0-2.0); EOSINOPHILS # 0.4 10^3/ul (0.0-0.5); EOSINOPHILS % 5.6 % (0.0-7.0); HEMATOCRIT 35.3 % (42.0-52.0); HEMOGLOBIN 11.6 g/dl (14.0-18.0); LYMPHOCYTES # 1.2 10^3/ul (0.8-2.9); LYMPHOCYTES % 18.5 % (15.0-51.0); MEAN CORPUSCULAR HEMOGLOBIN 27.2 pg (29.0-33.0); MEAN CORPUSCULAR HGB CONC 32.9 g/dl (32.0-37.0); MEAN CORPUSCULAR VOLUME 82.9 fl (82.0-101.0); MEAN PLATELET VOLUME 10.1 fl (7.4-10.4); MONOCYTE # 0.4 10^3/ul (0.3-0.9); MONOCYTES % 6.4 % (0.0-11.0); NEUTROPHIL # 4.4 10^3/ul (1.6-7.5); NEUTROPHILS % 68.5 % (39.0-77.0); PLATELET COUNT 347 10^3/UL (140-415); RED BLOOD COUNT 4.26 10^6/ul (4.70-6.10); RED CELL DISTRIBUTION WIDTH 13.2 % (11.5-14.5)
[2017-09-05 16:07] LABS: LACTIC ACID 1.6 mmol/L (0.5-2.0)
[2017-09-05 16:08] LABS: ALANINE AMINOTRANSFERASE 40 IU/L (13-69); ALBUMIN 4.5 g/dl (3.3-4.9); ALBUMIN/GLOBULIN RATIO 1.21; ALKALINE PHOSPHATASE 77 IU/L (42-121); ANION GAP 16 (8-16); ASPARTATE AMINO TRANSFERASE 22 IU/L (15-46); BILIRUBIN,INDIRECT 0.4 mg/dl (0-1.1); BILIRUBIN,TOTAL 0.4 mg/dl (0.2-1.3); BLOOD UREA NITROGEN 29 mg/dl (7-20); CARBON DIOXIDE 30 mmol/L (21-31); CHLORIDE 104 mmol/L (97-110); CREATININE 1.21 mg/dl (0.61-1.24); GLUCOSE 138 mg/dl (70-220); POTASSIUM 4.3 mmol/L (3.5-5.1); SODIUM 146 mmol/L (135-144); TOTAL PROTEIN 8.2 g/dl (6.1-8.1)
== END 2017-09-05 17:50 | disposition home or self-care (01) ==
LOC: FTE 12:40
DX: S93.122A Dislocation of metatarsophalangeal joint of left great toe, initial encounter (principal); E11.9 Type 2 diabetes mellitus without complications; X58.XXXA Exposure to other specified factors, initial encounter; Y92.9 Unspecified place or not applicable; Z48.01 Encounter for change or removal of surgical wound dressing; Z79.4 Long term (current) use of insulin
CPT/HCPCS: 29515; 36415; 73630-LT; 80053; 83605; 85025; 87040; 87070; 99284-25

== ENCOUNTER 2017-09-14 13:04 | Inpatient (IN) | payer BC ==
[2017-09-14] MEDS ORDERED: ACETAMINOPHEN 325 MG TAB PO ×3 (14:45→20:00)
[2017-09-14 15:23] LABS: ADD MAN DIFF? NO
[2017-09-14 15:27] LABS: WHITE BLOOD COUNT 9.5 10^3/ul (4.8-10.8)
[2017-09-14 15:27] LABS: BASOPHIL # 0.1 10^3/ul (0.0-0.1); BASOPHILS % 0.6 % (0.0-2.0); EOSINOPHILS # 0.4 10^3/ul (0.0-0.5); EOSINOPHILS % 4.2 % (0.0-7.0); HEMATOCRIT 31.7 % (42.0-52.0); HEMOGLOBIN 10.3 g/dl (14.0-18.0); LYMPHOCYTES # 1.5 10^3/ul (0.8-2.9); LYMPHOCYTES % 15.7 % (15.0-51.0); MEAN CORPUSCULAR HEMOGLOBIN 26.9 pg (29.0-33.0); MEAN CORPUSCULAR HGB CONC 32.5 g/dl (32.0-37.0); MEAN CORPUSCULAR VOLUME 82.8 fl (82.0-101.0); MEAN PLATELET VOLUME 9.5 fl (7.4-10.4); MONOCYTE # 0.8 10^3/ul (0.3-0.9); MONOCYTES % 8.5 % (0.0-11.0); NEUTROPHIL # 6.7 10^3/ul (1.6-7.5); NEUTROPHILS % 70.7 % (39.0-77.0); PLATELET COUNT 330 10^3/UL (140-415); RED BLOOD COUNT 3.83 10^6/ul (4.70-6.10); RED CELL DISTRIBUTION WIDTH 12.8 % (11.5-14.5)
[2017-09-14] MEDS: CEFEPIME 2GM/50 ML (PMX) 50 ML IVPB (15:33)
[2017-09-14] MEDS: SODIUM CHLORIDE 0.9% 1L BAG IV* (15:33)
[2017-09-14 15:47] LABS: LACTIC ACID 1.2 mmol/L (0.5-2.0)
[2017-09-14 15:47] LABS: ALANINE AMINOTRANSFERASE 45 IU/L (13-69); ALBUMIN/GLOBULIN RATIO 1.25; ALKALINE PHOSPHATASE 88 IU/L (42-121); ANION GAP 17 (8-16); ASPARTATE AMINO TRANSFERASE 30 IU/L (15-46); BILIRUBIN,INDIRECT 0.3 mg/dl (0-1.1); BILIRUBIN,TOTAL 0.3 mg/dl (0.2-1.3); BLOOD UREA NITROGEN 29 mg/dl (7-20); C-REACTIVE PROTEIN 1.1 mg/dl (0.0-0.9); CALCIUM 8.9 mg/dl (8.4-10.2); CARBON DIOXIDE 30 mmol/L (21-31); CHLORIDE 100 mmol/L (97-110); CREATININE 1.07 mg/dl (0.61-1.24); GLUCOSE 118 mg/dl (70-220); POTASSIUM 4.5 mmol/L (3.5-5.1); SODIUM 142 mmol/L (135-144); TOTAL PROTEIN 7.2 g/dl (6.1-8.1)
[2017-09-14 15:55] LABS: INR 1.01; PROTIME 13.4 Sec (11.9-14.9)
[2017-09-14 15:56] LABS: PARTIAL THROMBOPLASTIN TIME 29.4 Sec (25.0-35.0)
[2017-09-14 16:54] LABS: ERYTHROCYTE SEDIMENTATION RATE 40 mm/Hr (0-20)
[2017-09-14] MEDS ORDERED: ONDANSETRON 4 MG INJ IV ×2 (17:00→20:00)
[2017-09-14] MEDS: VANCOMYCIN 1 GM (PMX) 250 ML IVPB (17:16)
[2017-09-14 17:19] LABS: LACTIC ACID 0.7 mmol/L (0.5-2.0)
[2017-09-14] MEDS ORDERED: morphine 2 MG INJ IV (20:00)
[2017-09-14 20:12] LABS: LACTIC ACID 0.8 mmol/L (0.5-2.0)
[2017-09-14] MEDS ORDERED: DEXTROSE 50% 50 ML SYRINGE IV ×2 (20:30)
[2017-09-14] MEDS ORDERED: GLUCOSE GEL 15 GRAM TUBE BUCCAL (20:30)
[2017-09-14] MEDS ORDERED: GLUCOSE GEL 15 GRAM TUBE PO ×2 (20:30)
[2017-09-14] MEDS ORDERED: VANCOMYCIN IV PER PHARMACY XX (20:30)
[2017-09-14] MEDS ORDERED: GLUCAGON 1 MG INJ IM (20:30)
[2017-09-14] MEDS: PREGABALIN 100 MG CAP PO (21:09)
[2017-09-14] MEDS: ATORVASTATIN 20 MG TAB PO (21:09)
[2017-09-14] MEDS: VANCOMYCIN 500MG/NS (PMX) 100 ML IVPB (21:10)
[2017-09-14] MEDS: INSULIN ASPART [NOVOLOG] 3 ML PEN SC (21:19)
[2017-09-14] MEDS: PIPER-TAZO 3.375 GM IV (PMX) 100 ML IVPB (22:36)
[2017-09-15] MEDS: ACCU-CHEK XX (01:21)
[2017-09-15] MEDS: PIPER-TAZO 3.375 GM IV (PMX) 100 ML IVPB ×3 (05:24→21:12)
[2017-09-15] MEDS: LOSARTAN 50 MG TAB PO (08:50)
[2017-09-15] MEDS: PREGABALIN 100 MG CAP PO ×2 (08:51→20:08)
[2017-09-15] MEDS: INSULIN GLARGINE [LANtus] 3 ML PEN SC (08:56)
[2017-09-15] MEDS: INSULIN ASPART [NOVOLOG] 3 ML PEN SC ×4 (08:59→20:10)
[2017-09-15] MEDS: VANCOMYCIN 1 GM 250 ML IVPB (09:08)
[2017-09-15] MEDS: VENLAFAXINE 37.5 MG TAB PO (09:58)
[2017-09-15] MEDS: DAPTOMYCIN IVPB (16:24)
[2017-09-15] MEDS: SOD CHLORIDE 0.9% IVPB (16:24)
[2017-09-15] MEDS: ATORVASTATIN 10 MG TAB PO (20:08)
[2017-09-16] MEDS: ACCU-CHEK XX (01:14)
[2017-09-16] MEDS ORDERED: PENDING SANTYL ORDER FOR WOUND CARE XX (02:00)
[2017-09-16] MEDS: PIPER-TAZO 3.375 GM IV (PMX) 100 ML IVPB ×3 (05:24→21:36)
[2017-09-16 06:10] LABS: ADD MAN DIFF? NO
[2017-09-16 06:12] LABS: WHITE BLOOD COUNT 6.9 10^3/ul (4.8-10.8)
[2017-09-16 06:12] LABS: BASOPHIL # 0.1 10^3/ul (0.0-0.1); BASOPHILS % 1.2 % (0.0-2.0); EOSINOPHILS # 0.6 10^3/ul (0.0-0.5); EOSINOPHILS % 8.7 % (0.0-7.0); HEMATOCRIT 33.2 % (42.0-52.0); HEMOGLOBIN 10.8 g/dl (14.0-18.0); LYMPHOCYTES # 1.4 10^3/ul (0.8-2.9); LYMPHOCYTES % 20.5 % (15.0-51.0); MEAN CORPUSCULAR HGB CONC 32.5 g/dl (32.0-37.0); MEAN PLATELET VOLUME 10.1 fl (7.4-10.4); MONOCYTE # 0.5 10^3/ul (0.3-0.9); MONOCYTES % 7.7 % (0.0-11.0); NEUTROPHIL # 4.3 10^3/ul (1.6-7.5); NEUTROPHILS % 61.8 % (39.0-77.0); PLATELET COUNT 376 10^3/UL (140-415); RED CELL DISTRIBUTION WIDTH 12.9 % (11.5-14.5)
[2017-09-16 06:39] LABS: ALANINE AMINOTRANSFERASE 40 IU/L (13-69); ALBUMIN 3.7 g/dl (3.3-4.9); ALBUMIN/GLOBULIN RATIO 1.27; ALKALINE PHOSPHATASE 70 IU/L (42-121); ANION GAP 12 (8-16); ASPARTATE AMINO TRANSFERASE 22 IU/L (15-46); BILIRUBIN,INDIRECT 0.3 mg/dl (0-1.1); BILIRUBIN,TOTAL 0.3 mg/dl (0.2-1.3); BLOOD UREA NITROGEN 18 mg/dl (7-20); CALCIUM 9.4 mg/dl (8.4-10.2); CARBON DIOXIDE 33 mmol/L (21-31); CHLORIDE 102 mmol/L (97-110); CREATININE 1.06 mg/dl (0.61-1.24); GLUCOSE 209 mg/dl (70-220); POTASSIUM 4.3 mmol/L (3.5-5.1); SODIUM 143 mmol/L (135-144); TOTAL PROTEIN 6.6 g/dl (6.1-8.1)
[2017-09-16 06:43] LABS: CREATINE KINASE 43 IU/L (23-200)
[2017-09-16] MEDS: INSULIN GLARGINE [LANtus] 3 ML PEN SC (08:03)
[2017-09-16] MEDS: INSULIN ASPART [NOVOLOG] 3 ML PEN SC ×6 (08:04→20:09)
[2017-09-16] MEDS: VENLAFAXINE 37.5 MG TAB PO (08:35)
[2017-09-16] MEDS: PREGABALIN 100 MG CAP PO ×2 (08:35→20:02)
[2017-09-16] MEDS: LOSARTAN 50 MG TAB PO (08:36)
[2017-09-16] MEDS: HEPARIN 5,000 UNIT/0.5 ML VIAL SC ×2 (13:19→21:44)
[2017-09-16] MEDS: SOD CHLORIDE 0.9% IVPB (15:40)
[2017-09-16] MEDS: DAPTOMYCIN IVPB (15:40)
[2017-09-16] MEDS: ATORVASTATIN 10 MG TAB PO (20:02)
[2017-09-17] MEDS: ACCU-CHEK XX (01:38)
[2017-09-17] MEDS: PIPER-TAZO 3.375 GM IV (PMX) 100 ML IVPB ×3 (05:14→22:22)
[2017-09-17] MEDS: HEPARIN 5,000 UNIT/0.5 ML VIAL SC (05:20)
[2017-09-17] MEDS: INSULIN GLARGINE [LANtus] 3 ML PEN SC (08:05)
[2017-09-17] MEDS: INSULIN ASPART [NOVOLOG] 3 ML PEN SC ×7 (08:06→20:20)
[2017-09-17] MEDS: VENLAFAXINE 37.5 MG TAB PO (08:44)
[2017-09-17] MEDS: LOSARTAN 50 MG TAB PO (08:44)
[2017-09-17] MEDS: PREGABALIN 100 MG CAP PO ×2 (08:44→20:14)
[2017-09-17] MEDS ORDERED: LIDOCAINE 1% (MPF) 30 ML INJ (14:47)
[2017-09-17] MEDS: DAPTOMYCIN IVPB (15:00)
[2017-09-17] MEDS: SOD CHLORIDE 0.9% IVPB (15:00)
[2017-09-17] MEDS ORDERED: MIDAZOLAM 1 MG/ML 2 ML INJ (16:42)
[2017-09-17] MEDS ORDERED: PROPOFOL 20 ML (16:42)
[2017-09-17] MEDS ORDERED: METOCLOPRAMIDE 10 MG INJ ×2 (16:43→16:44)
[2017-09-17] MEDS ORDERED: FENTAnyl 50 MCG/ML VIAL (16:56)
[2017-09-17] MEDS ORDERED: CEFAZOLIN 1 GM INJ (17:24)
[2017-09-17] MEDS ORDERED: EPHEDrine SULFATE 50 MG/5 ML SYG (17:24)
[2017-09-17] MEDS ORDERED: HYDROmorphONE (0.2 MG/ML) 10ML SYG IV ×3 (17:30)
[2017-09-17] MEDS ORDERED: ONDANSETRON 4 MG INJ IV (17:30)
[2017-09-17] MEDS: BUPIVACAINE 0.25% (MPF) 30 ML INJ (17:49)
[2017-09-17] MEDS: ATORVASTATIN 10 MG TAB PO (20:14)
[2017-09-17] MEDS: FAMOTIDINE 20 MG TAB PO (20:14)
[2017-09-18] MEDS: ACCU-CHEK XX (01:35)
[2017-09-18] MEDS: PIPER-TAZO 3.375 GM IV (PMX) 100 ML IVPB (05:12)
[2017-09-18 05:49] LABS: ADD MAN DIFF? NO
[2017-09-18 05:54] LABS: BASOPHIL # 0.1 10^3/ul (0.0-0.1); BASOPHILS % 0.9 % (0.0-2.0); EOSINOPHILS # 0.4 10^3/ul (0.0-0.5); EOSINOPHILS % 5.1 % (0.0-7.0); HEMATOCRIT 27.5 % (42.0-52.0); HEMOGLOBIN 9.1 g/dl (14.0-18.0); LYMPHOCYTES # 1.3 10^3/ul (0.8-2.9); LYMPHOCYTES % 16.8 % (15.0-51.0); MEAN CORPUSCULAR HEMOGLOBIN 27.3 pg (29.0-33.0); MEAN CORPUSCULAR HGB CONC 33.1 g/dl (32.0-37.0); MEAN CORPUSCULAR VOLUME 82.6 fl (82.0-101.0); MEAN PLATELET VOLUME 9.5 fl (7.4-10.4); MONOCYTE # 0.6 10^3/ul (0.3-0.9); MONOCYTES % 7.5 % (0.0-11.0); NEUTROPHIL # 5.2 10^3/ul (1.6-7.5); NEUTROPHILS % 69.4 % (39.0-77.0); PLATELET COUNT 333 10^3/UL (140-415); RED BLOOD COUNT 3.33 10^6/ul (4.70-6.10)
[2017-09-18 05:54] LABS: WHITE BLOOD COUNT 7.5 10^3/ul (4.8-10.8)
[2017-09-18 06:22] LABS: MAGNESIUM 1.6 mg/dl (1.7-2.5)
[2017-09-18 06:22] LABS: PHOSPHORUS 4.7 mg/dl (2.5-4.9)
[2017-09-18 06:36] LABS: ANION GAP 13 (8-16); BLOOD UREA NITROGEN 21 mg/dl (7-20); CALCIUM 8.9 mg/dl (8.4-10.2); CARBON DIOXIDE 30 mmol/L (21-31); CHLORIDE 101 mmol/L (97-110); CREATININE 1.25 mg/dl (0.61-1.24); GLUCOSE 210 mg/dl (70-220); POTASSIUM 4.4 mmol/L (3.5-5.1); SODIUM 140 mmol/L (135-144)
[2017-09-18] MEDS: VENLAFAXINE 37.5 MG TAB PO (08:07)
[2017-09-18] MEDS: FAMOTIDINE 20 MG TAB PO ×2 (08:07→20:46)
[2017-09-18] MEDS: LOSARTAN 50 MG TAB PO (08:08)
[2017-09-18] MEDS: PREGABALIN 100 MG CAP PO ×2 (08:08→20:46)
[2017-09-18] MEDS: INSULIN GLARGINE [LANtus] 3 ML PEN SC (08:13)
[2017-09-18] MEDS: INSULIN ASPART [NOVOLOG] 3 ML PEN SC ×7 (08:14→21:00)
[2017-09-18] MEDS: MAGNESIUM OXIDE 400 MG TAB PO (10:54)
[2017-09-18] MEDS: SOD CHLORIDE 0.9% IVPB (14:25)
[2017-09-18] MEDS: DAPTOMYCIN IVPB (14:25)
[2017-09-18] MEDS: HEPARIN 5,000 UNIT/0.5 ML VIAL SC ×2 (14:30→22:17)
[2017-09-18] MEDS: LIDOCAINE 1% (MPF) 5 ML VIAL SC (18:10)
[2017-09-18] MEDS: SOD CHLORIDE 0.9% 100 ML (18:25)
[2017-09-18] MEDS: ATORVASTATIN 10 MG TAB PO (20:46)
[2017-09-19] MEDS: ACCU-CHEK XX (02:00)
[2017-09-19] MEDS: HEPARIN 5,000 UNIT/0.5 ML VIAL SC ×2 (06:18→14:29)
[2017-09-19 06:36] LABS: ADD MAN DIFF? NO
[2017-09-19 06:44] LABS: BASOPHIL # 0.1 10^3/ul (0.0-0.1); EOSINOPHILS # 0.4 10^3/ul (0.0-0.5); EOSINOPHILS % 6.7 % (0.0-7.0); HEMATOCRIT 28.7 % (42.0-52.0); HEMOGLOBIN 9.5 g/dl (14.0-18.0); LYMPHOCYTES # 1.4 10^3/ul (0.8-2.9); LYMPHOCYTES % 23.5 % (15.0-51.0); MEAN CORPUSCULAR HEMOGLOBIN 27.3 pg (29.0-33.0); MEAN CORPUSCULAR HGB CONC 33.1 g/dl (32.0-37.0); MEAN CORPUSCULAR VOLUME 82.5 fl (82.0-101.0); MEAN PLATELET VOLUME 9.7 fl (7.4-10.4); MONOCYTE # 0.5 10^3/ul (0.3-0.9); MONOCYTES % 8.3 % (0.0-11.0); NEUTROPHIL # 3.6 10^3/ul (1.6-7.5); NEUTROPHILS % 60.3 % (39.0-77.0); PLATELET COUNT 336 10^3/UL (140-415); RED BLOOD COUNT 3.48 10^6/ul (4.70-6.10)
[2017-09-19 07:11] LABS: ANION GAP 14 (8-16); BLOOD UREA NITROGEN 21 mg/dl (7-20); CALCIUM 9.2 mg/dl (8.4-10.2); CARBON DIOXIDE 34 mmol/L (21-31); CHLORIDE 99 mmol/L (97-110); CREATININE 1.12 mg/dl (0.61-1.24); GLUCOSE 221 mg/dl (70-220); POTASSIUM 4.5 mmol/L (3.5-5.1); SODIUM 142 mmol/L (135-144)
[2017-09-19] MEDS: INSULIN GLARGINE [LANtus] 3 ML PEN SC (08:31)
[2017-09-19] MEDS: INSULIN ASPART [NOVOLOG] 3 ML PEN SC ×6 (08:33→17:38)
[2017-09-19] MEDS: FAMOTIDINE 20 MG TAB PO (08:43)
[2017-09-19] MEDS: VENLAFAXINE 37.5 MG TAB PO (08:43)
[2017-09-19] MEDS: PREGABALIN 100 MG CAP PO (08:43)
[2017-09-19] MEDS: LOSARTAN 50 MG TAB PO (10:00)
[2017-09-19 13:01] LABS: TROPONIN-I < 0.012 ng/ml (0.00-0.12)
[2017-09-19] MEDS: DAPTOMYCIN IVPB (14:28)
[2017-09-19] MEDS: SOD CHLORIDE 0.9% IVPB (14:28)
== END 2017-09-19 19:15 | disposition home health service (06) | DRG 617 ==
LOC: E/R 13:04 → MS2 16:38
PROC: 0Y6Y0Z0 Detachment at Left 5th Toe, Complete, Open Approach (ICD-10-PCS; principal; 2017-09-17 16:49)
PROC: 0JBR0ZZ Excision of Left Foot Subcutaneous Tissue and Fascia, Open Approach (ICD-10-PCS; 2017-09-17 16:49)
PROC: 02HV33Z Insertion of Infusion Device into Superior Vena Cava, Percutaneous Approach (ICD-10-PCS; 2017-09-17 16:49)
DX: E11.69 Type 2 diabetes mellitus with other specified complication (principal); L03.116 Cellulitis of left lower limb; L02.612 Cutaneous abscess of left foot; M86.172 Other acute osteomyelitis, left ankle and foot; M00.9 Pyogenic arthritis, unspecified; E11.621 Type 2 diabetes mellitus with foot ulcer; L97.524 Non-pressure chronic ulcer of other part of left foot with necrosis of bone; E11.628 Type 2 diabetes mellitus with other skin complications; E11.65 Type 2 diabetes mellitus with hyperglycemia; E11.51 Type 2 diabetes mellitus with diabetic peripheral angiopathy without gangrene; I10 Essential (primary) hypertension; E78.5 Hyperlipidemia, unspecified; F32.9 Major depressive disorder, single episode, unspecified; E11.42 Type 2 diabetes mellitus with diabetic polyneuropathy; N17.9 Acute kidney failure, unspecified; Z79.4 Long term (current) use of insulin
CPT/HCPCS: 36415; 36569; 71045; 73630-LT; 73718; 76937; 80048; 80053; 82550; 82962; 83605; 83735; 84100; 84484; 85025; 85610; 85651; 85730; 86140; 87040; 88307; 88311; 93005; 93922; 96374; 96375; 97161; 99285-25